=== PATIENT | female | born 1980 | race Caucasian/White ===

== ENCOUNTER 2017-01-09 13:07 | Outpatient (CLI) | payer MEDICAID ==
[~2017-01-09] VITALS: Ht 157.5 cm; Wt 62.7 kg
[2017-01-09] MEDS ORDERED: PRENAT PO (13:34)
[2017-01-09] MEDS ORDERED: CALC-5 PO (13:34)
[2017-01-09] MEDS ORDERED: FER325 PO (13:34)
[2017-01-09 13:35] VITALS: BP 108/51; PULSE 80; RESP 18; Ht 157.5 cm; Wt 62.7 kg
--- NOTE | 2017-01-09 14:21 | RADRPT ---
PROCEDURE: OB ultrasound for biophysical profile CLINICAL INDICATION: Biophysical profile. . TECHNIQUE: Multiple sonographic images of the pelvis were obtained. Transabdominal views are obta ined. COMPARISON: None FINDINGS: Single intrauterine gestation. Presentation: Breech Placenta: Posterior No evidence of placental abruption. No evidence of placenta previa. breathing movement = 2/2 tone = 2/2 motion = 2/2 CLAIRE = 2/2 CLAIRE = 12.5 cm heart rate: 158 beats per minute IMPRESSION: Single intrauterine gestation. Biophysical profile 02/27 RPTAT: AADD .Johnathan Owens MD, MD Date Time Electronically viewed and signed by .Johnathan Owens MD, on 01/09/2017 14:20 .B/
--- NOTE | 2017-01-09 15:37 | PN ---
Triage Information Date/Time 01/10/2012: patient is referred for antepartum testing because of low MURPHY-A Weeks of Gestation 33. weeks : 1 Para: 0 Diabetes: none Hypertention: none Objective Vital Signs Date Time Temp Pulse Resp B/P Pulse Ox O2 Delivery O2 Flow Rate FiO2 01/09/17 13:35 98.0 80 18 108/51 Room Air Heart Rate: 150's Heart Rate Comments FHTs R Contractions: None Exam not relevant Results/Medications Imaging Results BPP 02/27 ASI:12 Assessment/Plan follow in NST USAMA MARTIN MD Jan 09, 2017 15:37
--- NOTE | 2017-01-09 15:43 | TRIAGE ---
OB Triage Datetime Report Generated by CPN: 01/09/2017 15:43 Datetime: 01/09/2017 15:00 Stage of : OB Triage Maternal Assessment Level of Consciousness: Fully Conscious Labor Evaluation Frequency: none Monitor Mode: External Quality: Mild Resting Tone [place]: Relaxed Heart Rate FHR Baseline Rate: 125 Monitor Mode: External US Variability: Moderate 6-25 bpm Accelerations: 15X15 Decelerations: None Category: Category I Pain Assessment Pain Scale: 0 Pain Presence: None/Denies Pain Goal: 3 Vaginal Exam Membrane Status: Intact Vaginal Bleeding: None Datetime: 01/09/2017 13:28 Assessment Type: Triage EGA: 33.0 Maternal Assessment Level of Consciousness: Fully Conscious DTR's/Clonus: DTRs 2+; No Clonus Headache: Denies Blurred Vision: No Respiratory Effort: Unlabored; Regular Rhythm; Equal Expansion Breath Sounds, Left: Clear and Equal Breath Sounds, Right: Clear and Equal Nausea/Vomiting: Denies RUQ Epigastric Pain: Denies Lower Extremities Edema: Bilateral Lower Extremities Degree: 1+ Upper Extremities Edema: None Degree: None Facial Edema: None Fall Risk Assessment History of Falling: (0) No Secondary Diagnosis: (0) No Ambulatory Aid: (0) Bedrest/Nurse Assist IV Therapy: (0) No Gait: (0) Normal/Bedrest/Immobile Mental Status: (0) Oriented to Own Ability Fall Score: 0 Fall Risk Score Definition: No Risk: No action required Datetime: 01/09/2017 13:27 Time of Arrival: 01/09/2017 13:05 Arrived By: Ambulatory Arrived From: Office Chief Complaint: pt here for NST/BPP FOR LOW PAPPA Movement: Present Contractions: Denies/Absent Rupture of Membranes: Denies Vaginal Discharge: Denies Recent Sexual Intercouse: Denies Abdominal Trauma: Not Applicable Patient Complaints: None Time Provider Notified: 01/09/2017 15:18 Provider Notified: NIKOLAI Initial Plan: NST/BPP Datetime: 01/09/2017 13:25 Monitor Mode: External Monitor Mode: External US
== END 2017-01-09 15:45 | disposition home or self-care (01) ==
LOC: OBT 13:07 → L-D 13:08 → OBT 15:45
PROVIDERS: ATTEND Obstetrics & Gynecology
DX: O28.1 Abnormal biochemical finding on antenatal screening of mother (principal); O09.513 Supervision of elderly primigravida, third trimester; Z3A.33 33 weeks gestation of pregnancy
CPT/HCPCS: 76818; Z7500; G0463

== ENCOUNTER 2017-02-20 16:01 | Inpatient (IN) | payer MEDICAID ==
[~2017-02-20] VITALS: Ht 157.5 cm; Wt 66.3 kg
[~2017-02-20 16:01] MED LIST: CALC-5 PO; FER325 PO; PRENAT PO
[2017-02-20 16:32] VITALS: BP 117/58; PULSE 72; RESP 18; Ht 157.5 cm; Wt 66.3 kg
[2017-02-20] MEDS ORDERED: OXYTOCIN 30 UNITS/LR 500 ML IV PRN ×2 (17:30→20:00)
[2017-02-20] MEDS ORDERED: METHYLERGONOVINE 0.2 MG INJ IM PRN ×2 (17:30→20:00)
[2017-02-20] MEDS ORDERED: LIDOCAINE 1% (MPF) 30 ML INJ INJ PRN (17:30)
[2017-02-20] MEDS ORDERED: AMPICILLIN 2 GM/NS (PMX) 100 ML IV ONE (17:30)
[2017-02-20] MEDS ORDERED: IBUPROFEN 600 MG TAB PO PRN (17:30)
[2017-02-20] MEDS ORDERED: MISOPROSTOL 200 MCG TAB PR PRN ×2 (17:30→20:00)
[2017-02-20] MEDS ORDERED: LACTATED RINGER'S 1,000 ML IV PRN (17:30)
[2017-02-20] MEDS ORDERED: BUTORPHANOL 2 MG INJ IV PRN (17:30)
[2017-02-20] MEDS ORDERED: OXYTOCIN 30 UNITS/LR 500 ML IV SCH ×4 (17:30→20:00)
[2017-02-20] MEDS ORDERED: CARBOPROST 250 MCG INJ IM PRN ×2 (17:30→20:00)
[2017-02-20] MEDS: LACTATED RINGER'S 1,000 ML IV SCH ×2 (18:34→23:22)
[2017-02-20 19:25] LABS: BASOPHILS % 0.4 % (0.0-2.0); EOSINOPHILS # 0.1 10^3/ul (0.0-0.5); EOSINOPHILS % 1.6 % (0.0-7.0); HEMATOCRIT 34.3 % (37.0-47.0); HEMOGLOBIN 11.8 g/dl (12.0-16.0); LYMPHOCYTES # 1.5 10^3/ul (0.8-2.9); LYMPHOCYTES % 21.6 % (15.0-51.0); MEAN CORPUSCULAR HEMOGLOBIN 31.8 pg (29.0-33.0); MEAN CORPUSCULAR HGB CONC 34.4 g/dl (32.0-37.0); MEAN CORPUSCULAR VOLUME 92.5 fl (82.0-101.0); MEAN PLATELET VOLUME 10.3 fl (7.4-10.4); MONOCYTE # 0.6 10^3/ul (0.3-0.9); MONOCYTES % 9.2 % (0.0-11.0); NEUTROPHIL # 4.7 10^3/ul (1.6-7.5); NEUTROPHILS % 66.8 % (39.0-77.0); PLATELET COUNT 232 10^3/UL (140-415); RED BLOOD COUNT 3.71 10^6/ul (4.20-5.40); RED CELL DISTRIBUTION WIDTH 12.2 % (11.5-14.5)
[2017-02-20 19:45] LABS: INR 0.88; PROTIME 11.9 Sec (12.2-14.2); PT RATIO 0.9
[2017-02-20 19:46] LABS: PARTIAL THROMBOPLASTIN TIME 28.5 Sec (25.0-35.0)
[2017-02-20] MEDS ORDERED: CEFAZOLIN 2 GM/50 ML (PMX) 50 ML IV SCH (20:00)
[2017-02-20] MEDS ORDERED: TERBUTALINE 1 MG/ML INJ SC ONE (20:00)
[2017-02-20] MEDS ORDERED: AMPICILLIN 1 GM/NS (PMX) 50 ML IV SCH (21:30)
[2017-02-21] MEDS: LACTATED RINGER'S 1,000 ML IV SCH ×2 (05:57→18:13)
[2017-02-21] MEDS ORDERED: ONDANSETRON 4 MG INJ IV STA (06:11)
[2017-02-21] MEDS ORDERED: CITRIC ACID/NA CITRATE 30 ML CUP ONE (06:13)
[2017-02-21] MEDS ORDERED: ONDANSETRON 4 MG INJ ONE (06:14)
[2017-02-21] MEDS ORDERED: CEFAZOLIN 2 GM/50 ML (PMX) 50 ML IVPB ONE (06:30)
[2017-02-21] MEDS ORDERED: CITRIC ACID/NA CITRATE 30 ML CUP PO ONE (06:30)
[2017-02-21] MEDS ORDERED: morphine SULFATE/PF (10 MG/10 ML) INJ ONE (06:44)
[2017-02-21] MEDS ORDERED: PHENYLephrine (100 MCG/ML) 5ML SYG ONE (06:45)
[2017-02-21] MEDS ORDERED: OXYTOCIN 30 UNITS/LR 500 ML BAG IV ONE (07:00)
[2017-02-21] MEDS ORDERED: EPHEDrine SULFATE 50 MG/5 ML SYG ONE (07:09)
[2017-02-21] MEDS ORDERED: FENTAnyl 50 MCG/ML VIAL ONE ×2 (07:15→07:32)
[2017-02-21] MEDS ORDERED: ALBUTEROL 0.083% (NEB) 2.5 MG/3 ML AMP HHN PRN (08:30)
[2017-02-21] MEDS ORDERED: MEPERIDINE 25 MG INJ IV PRN (08:30)
[2017-02-21] MEDS ORDERED: HYDROmorphONE 1 MG/ML SYG IV PRN ×2 (08:30)
[2017-02-21] MEDS ORDERED: DIPHENHYDRAMINE 50 MG INJ IV PRN ×3 (08:30→12:30)
[2017-02-21] MEDS ORDERED: METOCLOPRAMIDE 10 MG INJ IV PRN (08:30)
[2017-02-21] MEDS ORDERED: ONDANSETRON 4 MG INJ IV PRN ×3 (08:30→12:30)
[2017-02-21] MEDS ORDERED: FENTAnyl 50 MCG/ML VIAL IV PRN ×2 (08:30)
[2017-02-21] MEDS ORDERED: NALOXONE (0.4 MG/ML) INJ IV PRN (08:30)
[2017-02-21] MEDS ORDERED: HYDROmorphONE (0.2 MG/ML) 10ML SYG IV PRN ×2 (08:30)
[2017-02-21] MEDS ORDERED: KETOROLAC 30 MG INJ IV PRN (08:30)
--- NOTE | 2017-02-21 09:03 | HP ---
Date/Time of Note Date/Time of Note DATE: 02/21/17 TIME: 08:37 OB - History Hx of Present Free Text/Dictation 36y.o primigravida was admitted for induction of labor for oligohydramnios (7.4 ) ,also she has been f/u with APtest started at 32w for lowPAPP-A initial VE cx closed and long, EFM revealed irregular uterine contractions which rather prolonged cause decelerations,so patient was under oservation rather than initiating induction During the observation it was noticed that tracing was nonreactive with irregular uterine contractions which rather last longer than usual length. repetitive decelerations after u.c even though BBV was moderate, reached FHR down to 60's primary c/s was called for mode of delivery due to CAT II tracing and delivery was remote Chief Complaint: admitted for induction Estimated Due Date: Feb 27, 2017 : 1 Para: 0 Spontaneous : 0 Therapeutic : 0 Care: Good Care Ultrasounds: Normal mid trimester US, Other (echogenic foci in the heart) Obstetrical Complications: Gestational Diabetes, Other (oligohydramnios) Past Family/Social History * Past Medical, Surgical, Family and Obstetric Histories reviewed from chart. Blood Type: A+ Rubella: unknown RPR/VDRL: Negative GBS Status: Negative HBsAG: Negative OB Admission Exam Vital Signs Vital Signs Vital Signs Date Time Temp Pulse Resp B/P Pulse Ox O2 Delivery O2 Flow Rate FiO2 02/20/17 16:32 98.1 72 18 117/58 Room Air Physical Exam HEENT: WNL Heart: Rhythm Normal Lungs: Clear, Equal Abdomen: WNL Extremities: Normal Reflexes: Normal Cervical Dilatation: None Effacement: 0% Station: -3 Membranes: Intact Amniotic Fluid: Unevaluable Heart Rate: 120's Accelerations: Accelerations Present Decelerations: Late Decelarations Varibility: Moderate Contractions on Admission: 6-10 Minutes Apart Intensity: Mild Last 72 hours Lab Results CBC & BMP 02/20/17 18:10 OB Assessment/Plan Other Assessment: IUP 39w1d oligohydramnios cat II tracing Plan: Section MED MAJANO MD Feb 21, 2017 08:57
--- NOTE | 2017-02-21 09:18 | OPR ---
Operative Report Planned Procedure Free Text/Dictation 36 y.o primigravida cat II tracing with oligohydramnios Procedure date Feb 21, 2017 Procedure(s) primary lowtransverse section Performed by: MED MAJANO MD Assisting provider: KARLOS HO MD Anesthesiologist: HARSH MCKEON Pre-procedure diagnosis IUP 39w1d cat II tracing oligohydramnios Anesthesia Type: spinal Procedure Description Under satisfactory [] anesthesia, the patient was prepped and draped and placed in a supine position, tilted to the left. Pfannenstiel incision was made, carried through the subcutaneous tissue. Bleeders brought under control with electrocautery. Fascia incised to the length of the incision. Rectus muscles from the fascia, divided midline. Peritoneum exposed, entered through a transverse incision. Exploration of abdomen revealed gravid uterus. Transverse incision was made in the lower segment of the uterus. Amniotic sac ruptured. small amount clear [] amniotic fluid noted. normal infant was kayla from lot,[] Nasal oropharyngeal suction was performed. The baby was handed to the team for immediate attention. The placenta was delivered manually intact. Uterine cavity was cleaned with wet sponge and drainage established. Uterus closed in 2 layers using []#1ch gut and 0ch gut in continuous fashion. Peritoneal cavity irrigated with warm saline Uterine incision was recked for bleeder which was intact. Sponge, needle and instrument count reported to be correct. Abdominal peritoneum closed with [0ch cat gut ] continuously. Rectus muscle approximated with [same suture]. Fascia closed with #1vicryl in contineous in 2segment and subcut was irrigated with water and approximated with 00 plain gut ], and skin closed with 000 monocryl subcutaneously Estimated blood loss [600]mL. Urine bag contained [300mL of urine Post-Procedure Post-procedure diagnosis delivered normal female Findings: Live Baby [female], Apgars [8] and [9 ], weight []6lb, position lot[], [] presentation [vx]cord.no nuchal cord Specimen removed: No Complications: None Pt Condition post procedure: stable Disposition: PACU Physician Certification I, the undersigned physician, hereby certify that I have discussed the procedure described in this consent form with this patient (or the patient's legal event sales representative), including: * The risk and benefits of the procedure; * Any adverse reactions that may reasonably be expected to occur; * Any alternative efficacious methods of treatment which may be medically viable ; * The potential problems that may occur during recuperation; * Potential for blood transfusion and associated risks/benefits; and * Any research or economic interest I may have regarding this treatment. I further certify that the patient/legally responsible person was encouraged to ask question and that all questions were answered. MED MAJANO MD Feb 21, 2017 09:17
[2017-02-21 10:40] VITALS: BP 122/75; PULSE 76; RESP 19
[2017-02-21] MEDS ORDERED: CARBOPROST 250 MCG INJ IM PRN (12:30)
[2017-02-21] MEDS ORDERED: OXYTOCIN 30 UNITS/LR 500 ML IV PRN (12:30)
[2017-02-21] MEDS ORDERED: OXYCODONE/ACETAMINOPHEN (5/325) TAB PO PRN (12:30)
[2017-02-21] MEDS ORDERED: LANOLIN 7 GM TUBE TOP PRN (12:30)
[2017-02-21] MEDS ORDERED: ZOLPIDEM 5 MG TAB PO PRN (12:30)
[2017-02-21] MEDS ORDERED: METHYLERGONOVINE 0.2 MG INJ IM PRN (12:30)
[2017-02-21] MEDS ORDERED: MISOPROSTOL 200 MCG TAB PR PRN (12:30)
[2017-02-21] MEDS: KETOROLAC 30 MG INJ IV PRN (15:11)
[2017-02-21] MEDS: CLINDAMYCIN 300 MG CAP PO SCH ×3 (15:16→23:39)
[2017-02-21 16:00] VITALS: BP 108/51; RESP 18
[2017-02-21 20:00] VITALS: BP 98/56; PULSE 89; RESP 18
[2017-02-21] MEDS: CEFAZOLIN 2 GM/50 ML (PMX) 50 ML IVPB SCH (21:30)
[2017-02-21] MEDS: SENNA/DOCUSATE NA (8.6MG/50MG) TAB PO SCH (21:30)
[2017-02-22] VITALS: BP 95/53; PULSE 82; RESP 18
[2017-02-22] MEDS: LACTATED RINGER'S 1,000 ML IV SCH (02:30)
[2017-02-22 04:00] VITALS: BP 91/54; PULSE 89; RESP 18
[2017-02-22] MEDS: KETOROLAC 30 MG INJ IV PRN (04:42)
[2017-02-22] MEDS: CEFAZOLIN 2 GM/50 ML (PMX) 50 ML IVPB SCH ×2 (05:33→15:21)
[2017-02-22] MEDS: CLINDAMYCIN 300 MG CAP PO SCH ×3 (05:33→18:37)
[2017-02-22 08:00] VITALS: BP 89/50; PULSE 90; RESP 19
[2017-02-22 08:47] LABS: BASOPHILS % 0.1 % (0.0-2.0); EOSINOPHILS # 0.1 10^3/ul (0.0-0.5); EOSINOPHILS % 1.2 % (0.0-7.0); HEMATOCRIT 22.6 % (37.0-47.0); HEMOGLOBIN 7.5 g/dl (12.0-16.0); LYMPHOCYTES % 12.3 % (15.0-51.0); MEAN CORPUSCULAR HGB CONC 33.2 g/dl (32.0-37.0); MEAN CORPUSCULAR VOLUME 93.4 fl (82.0-101.0); MONOCYTE # 0.6 10^3/ul (0.3-0.9); MONOCYTES % 7.1 % (0.0-11.0); NEUTROPHIL # 6.1 10^3/ul (1.6-7.5); NEUTROPHILS % 78.9 % (39.0-77.0); PLATELET COUNT 161 10^3/UL (140-415); RED BLOOD COUNT 2.42 10^6/ul (4.20-5.40); RED CELL DISTRIBUTION WIDTH 12.4 % (11.5-14.5); WHITE BLOOD COUNT 7.7 10^3/ul (4.8-10.8)
[2017-02-22] MEDS: SENNA/DOCUSATE NA (8.6MG/50MG) TAB PO SCH ×2 (09:19→20:31)
[2017-02-22] MEDS ORDERED: BISACODYL 10 MG SUPP PR ONE (09:30)
[2017-02-22 11:22] LABS: RUBELLA ANTIBODY - IGG 2.69 index
[2017-02-22] MEDS: IBUPROFEN 600 MG TAB PO SCH ×2 (11:49→18:37)
--- NOTE | 2017-02-22 14:58 | PN ---
Date/Time of Note Date/Time of Note DATE: 02/22/17 TIME: 14:57 Assessment/Plan VTE Prophylaxis VTE Prophylaxis Intervention: ambulation Lines/Catheters IV Catheter Type (from Nrsg): Peripheral IV Assessment/Plan Assessment/Plan Postop day 1 Status post We will advanced diet and ambulate Subjective 24 Hr Interval Summary No bowel movement passing flatus Constitutional: BM, ambulates, flatus, improved, no complaints, urine output Pain Control: well controlled Exam/Review of Systems Vital Signs Vitals Vital Signs Date Time Temp Pulse Resp B/P Pulse Ox O2 Delivery O2 Flow Rate FiO2 02/22/17 08:00 98.6 90 19 89/50 Room Air 02/22/17 06:01 97 21 Intake and Output 02/21/17 02/21/17 02/22/17 15:00 23:00 07:00 Intake Total 1250 ml 925 ml Output Total 2000 ml 875 ml 850 ml Balance -2000 ml 375 ml 75 ml Exam Free Text/Dictation Abdomen is soft Tender around the incision Incision is still covered Constitutional: alert, oriented, well developed Psych: nl mood/affect, no complaints Head: atraumatic, normocephalic Eyes: EOMI, nl conjunctiva, nl lids, nl sclera ENMT: mucosa pink and moist, nl external ears & nose, nl lips & teeth, nl nasal mucosa & septum Neck: non-tender, supple Respiratory: clear to auscultation, normal air movement Cardiovascular: nl pulses, regular rate and rhythm Gastrointestinal: nl liver, spleen, non-tender, soft Drains None Musculoskeletal: nl extremities to inspection, nl gait and stance Extremities: normal pulses Neurological: WEATHERIZATION TECHNICIAN II-XII intact, nl mental status, nl speech, nl strength Skin: nl turgor, rash or lesions Lymph: nl lymph nodes Results Result Diagram: 02/22/17 0826 USAMA MARTIN MD Feb 22, 2017 14:58
[2017-02-22] MEDS: OXYCODONE/ACETAMINOPHEN (5/325) TAB PO PRN ×2 (16:08→20:32)
[2017-02-22 16:36] VITALS: BP 88/48; PULSE 81; RESP 17
[2017-02-22 20:00] VITALS: BP 98/63; PULSE 78; RESP 18
[2017-02-23] MEDS: CLINDAMYCIN 300 MG CAP PO SCH ×4 (00:21→17:48)
[2017-02-23] MEDS: IBUPROFEN 600 MG TAB PO SCH ×4 (00:21→17:48)
[2017-02-23 04:00] VITALS: BP 88/45; PULSE 74; RESP 20
[2017-02-23 08:00] VITALS: BP 85/48; PULSE 76; RESP 18
[2017-02-23] MEDS: SENNA/DOCUSATE NA (8.6MG/50MG) TAB PO SCH ×2 (08:28→21:00)
[2017-02-23 16:00] VITALS: BP 98/51; PULSE 73; RESP 17
[2017-02-23] MEDS: OXYCODONE/ACETAMINOPHEN (5/325) TAB PO PRN (16:49)
--- NOTE | 2017-02-23 17:54 | DS ---
Date/Time of Note Date/Time of Note Home next day DATE: 02/23/17 TIME: 17:53 Obstetrical Discharge Record Final Diagnosis Final Diagnosis: Term delivered Other Final Diagnosis Status post Section Section: Primary Primary Indication Nonreassuring heart tones Category 3 heart tracing Complications Augmentation: No Induction: No Condition on Discharge Physical Assessment Last Vitals: See nurse's notes Voiding: Yes Bowel Movement: Yes Breast: Soft, non-tender, Filling Fundus: Firm Abdomen and Incision: Soft bowel sounds positive Incision is clean without induration or erythema Episiotomy: Not applicable Calf Tenderness: No Patient Condition: Good USAMA MARTIN MD Feb 23, 2017 17:54
--- NOTE | 2017-02-23 18:00 | DS ---
Date/Time of Note Date/Time of Note DATE: 02/23/17 TIME: 17:58 Discharge Summary Admission/Discharge Info Admit Date/Time Feb 20, 2017 at 16:42 Discharge Date/Time February 24, 2017 Discharge Diagnosis Status post Patient Condition: Good Procedures Primary Hx of Present Illness 36-year-old female underwent primary with diagnosis of category 3 heart tracings Hospital Course Uncomplicated Home Meds Reported Medications Calcium Carbonate/Vitamin D2 (Calcium Oys Shell 250 mg Tab) 1 Each Tablet, 1 EACH PO, TAB 01/09/17 Ferrous Sulfate* (Ferrous Sulfate*) 325 Mg Tabec, 325 MG PO DAILY, TAB 01/09/17 Multivit/Min/Fol Ac/Iron/Pren* ( S*) 1 Tab Tab, 1 TAB PO DAILY, TAB 01/09/17 Follow-up Plan 2 3 days in clinic for staple removal Primary Care Provider Care Physician No Primary Time spent on discharge: > 30 minutes USAMA MARTIN MD Feb 23, 2017 18:00
--- NOTE | 2017-02-23 18:01 | PD.PPDC ---
[facility]S [facility]TER Discharge Instruction Provider Information Physician Information 36-year-old female on her vent primary Diagnosis Final Diagnosis: Status post C6 Condition Patient Condition: Good Diet Diet: Resume Regular Diet Activity/Restrictions Activity: May Shower Restrictions: No Exercising No Lifting Nothing in the Vagina Return to Work or School: Apr 30, 2017 Wound/Drain Care Instructions Wound/Drain Care Instructions: Keep clean and dry Follow-up Follow-up with Physician: 2, 3, Day/Days (In clinic for staple removal) Return to clinic for [employer] Instructions: Fever greater than 101 Chills OB Instructions: Breast Tenderness Depression Surgical Instructions: Incisional Drainage Incisional Redness USAMA MARTIN MD Feb 23, 2017 18:01
[2017-02-23] MEDS ORDERED: IBUP-1542 PO (18:02)
[2017-02-23 20:00] VITALS: BP 99/54; PULSE 75; RESP 20
[2017-02-24] MEDS: IBUPROFEN 600 MG TAB PO SCH ×3 (00:03→12:28)
[2017-02-24] MEDS: CLINDAMYCIN 300 MG CAP PO SCH ×3 (00:03→12:28)
[2017-02-24 04:00] VITALS: BP 91/46; PULSE 65; RESP 18
[2017-02-24 08:00] VITALS: BP 105/62; PULSE 67; RESP 18
[2017-02-24] MEDS ORDERED: DIPHTH/TET/ACEL PERTUSS (ADULT) 0.5 ML VIAL IM* ONE (09:00)
[2017-02-24] MEDS: OXYCODONE/ACETAMINOPHEN (5/325) TAB PO PRN (09:49)
[2017-02-24] MEDS: SENNA/DOCUSATE NA (8.6MG/50MG) TAB PO SCH (09:49)
== END 2017-02-24 15:48 | disposition home or self-care (01) | DRG 765 ==
LOC: OBT 16:01 → L-D 16:02 → OBT 16:42 → L-D 02-21 06:28 → PP1 02-21 10:48
PROVIDERS: ADMIT Obstetrics & Gynecology; ATTEND Obstetrics & Gynecology
PROC: 3E033VJ Introduction of Other Hormone into Peripheral Vein, Percutaneous Approach (ICD-10-PCS; 2017-02-21)
PROC: 10D00Z1 Extraction of Products of Conception, Low, Open Approach (ICD-10-PCS; principal; 2017-02-21 07:15)
DX: O76 Abnormality in fetal heart rate and rhythm complicating labor and delivery (principal); O41.03X0 Oligohydramnios, third trimester, not applicable or unspecified; Z3A.39 39 weeks gestation of pregnancy; Z37.0 Single live birth
CPT/HCPCS: 59020; 85025; 85610; 85730; 86592; 86762; 86900; 86901; 87340; 90715; 94760; 99464; G0463; J0690; J1170; J1885; J2274; J2370; J2405; J2590; J3010; J3105; J7120